=== PATIENT | male | born 1935 | race Caucasian/White ===

== ENCOUNTER 2021-07-02 07:20 | Day surgery (SDC) | payer OTHER ==
[~2021-07-02] VITALS: Ht 177.8 cm; Wt 68.0 kg
--- NOTE | ~2021-07-02 | O ---
[facility] [address] [place] [address] OPERATIVE REPORT Name: RHIANNON DODD Room #: 150-7 [facility]#: [id number] Admission: 07/02/21 Attend Phys: Tyree Guzman MD Discharge: Date of : [birth year] Report #: [id number] THIS REPORT FOR: cc: Lilliana Finch MD,Lilliana Guzman,Tyree Carlos MD ~ cc: Lilliana Finch MD DATE OF SERVICE: 07/02/2021 SURGEON: Tyree Guzman MD INSPECTOR MACHINE PARTS: None. PREOPERATIVE DIAGNOSIS: Bilateral lower lid ectropion. POSTOPERATIVE DIAGNOSIS: Bilateral lower lid ectropion. OPERATION PERFORMED: Bilateral lower lid ectropion repair. ANESTHESIA: Local with IV sedation. COMPLICATIONS: None. INDICATIONS FOR PROCEDURE: This patient has bilateral acquired lower lid ectropion with chronic tearing, keratopathy and discharge. The current procedures are undertaken in order to improve the patient's visual function, lacrimal outflow, and level of comfort. Informed consent was obtained to include but not limit to the risk of loss of vision, bleeding, infection, scarring, failure to improve the problem and need for further surgery. DESCRIPTION OF OPERATION: The patient was taken to the operating room where 2% Xylocaine with epinephrine mixed with equal parts of 0.75% Marcaine with Wydase was administered transcutaneously and transconjunctivally to each lower lid and lateral canthal area. The patient was then prepped and draped in the usual sterile fashion. A Jada clamp was then used to clamp the left lateral canthus following which a sharp canthotomy and cantholysis were performed. The tarsal strip was prepared laterally, removing the lash bearing portion of the redundant lid margin and the redundant tarsal plate. Hemostasis was achieved with a monopolar cautery, as it was throughout the case. The tarsal strip was then secured to the internal portion of the lateral orbital tubercle with two interrupted 5-0 Prolene sutures. The lateral canthal angle was sharply reformed as the subcutaneous structures and the skin were closed with multiple interrupted 6-0 plain gut sutures. Attention was then turned to the right side where the same procedure was [facility] [address] [place] [address] OPERATIVE REPORT Name: RHIANNON DODD Room #: 150-7 [facility]#: [id number] Admission: 07/02/21 Attend Phys: Tyree Guzman MD Discharge: Date of : [birth year] Report #: [id number] performed. The wounds were cleaned and dressed with ophthalmic antibiotic ointment. The patient was then transported to the recovery area, having tolerated the procedure well with no anesthetic or operative complications being noted. By: [id number] Tyree Guzman MD /nt
[~2021-07-02 07:20] MED LIST: ASA81BEC PO; CO-ENZYME Q-1010 MG PO; FISH OIL 1,0001 EAC9 PO; GLUCOSAMINE CH1 EAC2 PO; LIPITOR 40 MG T40 M1 PO; METFORMIN HCL500 M1 PO; MULTI VITAMIN1 EACH PO; OMEPRAZOLE 20 M20 M1 PO; PRESERVISION A1 EACH PO; TAMSULOSIN HCL0.4 MG PO; VITAMIN C500 M2 PO; VITAMIN D325 MC5 PO
[2021-07-02 08:30] VITALS: BP 118/74
== END 2021-07-02 11:00 | disposition home or self-care (01) ==
LOC: OR 07:20 → TBA 07:24 → OR 11:00
PROVIDERS: ATTEND Ophthalmology
DX: H02.105 Unspecified ectropion of left lower eyelid (principal); H02.102 Unspecified ectropion of right lower eyelid; I10 Essential (primary) hypertension; E11.9 Type 2 diabetes mellitus without complications; M19.90 Unspecified osteoarthritis, unspecified site; K21.9 Gastro-esophageal reflux disease without esophagitis; Z98.890 Other specified postprocedural states; Z79.899 Other long term (current) drug therapy; Z87.891 Personal history of nicotine dependence; Z79.82 Long term (current) use of aspirin; Z20.822 Contact with and (suspected) exposure to COVID-19
CPT/HCPCS: 50010; 50101; 50386; 50398; 51636; 56527; 56531; 62110; 62850; 70005